=== PATIENT | male | born 1960 | race Caucasian/White ===

== ENCOUNTER 2022-04-30 14:23 | Emergency (ER) | payer OTHER ==
[2022-04-30 15:49] LABS: BASOPHIL 0.4 % (0-2); EOSINOPHIL 0 % (0-5); HCT 35.4 % (42.0-52.0); HGB 11.8 g/dl (13.2-18.0); LYMPHOCYTE 5.8 % (15-48); MCH 29.7 pg (25.0-31.0); MCHC 33.3 g/dL (32.0-36.0); MCV 89.2 fL (78.0-100.0); MONOCYTE 6.7 % (0-12); MPV 9.3 fL (6.0-9.5); NEUTROPHIL 86.4 % (41-80); NRBC 0; PLT 269 K/uL (150-400); RBC 3.97 M/uL (4.70-6.00); WBC 10.6 K/uL (4.0-10.5)
[2022-04-30 15:56] LABS: BILIRUBIN NEGATIVE (NEGATIVE); BLOOD 3+ Ery/uL (NEGATIVE); CLARITY CLEAR (CLEAR); COLOR YELLOW (YELLOW); GLUCOSE (U) 2+ mg/dL (NORMAL); LEUKOCYTES NEGATIVE Leu/uL (NEGATIVE); NITRITE NEGATIVE (NEGATIVE); PROTEIN 2+ mg/dL (NEGATIVE); SPECIFIC GRAVITY 1.025 (1.001-1.030); UROBILINOGEN 0.2 mg/dL (0.2-1.0)
[2022-04-30 15:59] LABS: INR 1.14 (0.9-1.2)
[2022-04-30 16:00] LABS: PTT 27.7 SECONDS (24.4-34.7)
[2022-04-30 16:10] LABS: ALBUMIN 3.1 g/dL (3.4-5.0); ALKALINE PHOSHATASE 146 U/L (46-116); ALT 46 U/L (16-63); AST 58 U/L (15-37); BILIRUBIN - TOTAL 0.8 mg/dL (0.2-1.0); BUN 32 mg/dL (7-18); BUN/CREAT RATIO (CALC) 15.2 RATIO; CHLORIDE 100 mmol/L (98-107); CO2 (BICARBONATE) 26 mmol/L (21-32); CREATININE 2.11 mg/dL (0.67-1.17); GLOBULIN (CALCULATION) 3.7 g/dL; GLUCOSE 204 mg/dL (74-106); LIPASE 82 U/L (73-393); MAGNESIUM 2.1 mg/dL (1.8-2.4); TOTAL PROTEIN 6.8 g/dL (6.4-8.2)
[2022-04-30 16:14] LABS: BACTERIA TRACE; SQUAMOUS EPITHELIAL CELLS RARE; URINARY RBC RARE; URINARY WBC RARE
[2022-04-30 16:17] LABS: LACTIC ACID 2.1 mmol/L (0.4-1.9)
== END 2022-05-01 05:30 | disposition other institution (70) ==
LOC: FER 14:23
PROVIDERS: Emergency Medicine
DX: R41.82 Altered mental status, unspecified (principal); R56.9 Unspecified convulsions; R77.8 Other specified abnormalities of plasma proteins
CPT/HCPCS: 36415; 36600; 70450; 71250; 80053; 81001; 82140; 82803; 83605; 83690; 83735; 83880; 84145; 84439; 84484; 85025; 85610; 85730; 87040; 93005; G0480; J1644; J7030